=== PATIENT | male | born 1935 | race Caucasian/White ===

== ENCOUNTER 2020-08-09 12:11 | Emergency (ER) | payer BC, SELFPAY ==
[2020-08-09 12:15] VITALS: BP 130/61; PULSE 68; RESP 18; TEMP 36.6; O2SAT 99
--- NOTE | 2020-08-09 12:21 | ED.WOUNDLAC ---
HPI - Wound/Laceration General Chief Complaint: Wound/Laceration Stated Complaint: Bleeding Toe Time Seen by Provider: 08/09/20 12:21 History of Present Illness HPI narrative: He sustained a laceration to the right great toe while stepping out of the shower this morning. He attempted to control the bleeding at home, but he was not able to. He has minimal pain. No other symptoms. No fall or other injuries. No blood thinners. Related Data Home Medications Medication Instructions Recorded Confirmed lisinopril 08/09/20 valacyclovir 08/09/20 Allergies Allergy/AdvReac Type Severity Reaction Status Date / Time No Known Allergies Allergy Unknown Verified 08/09/20 12:17 Review of Systems Review of Systems: All systems reviewed & are unremarkable except as noted in HPI and below Constitutional: Constitutional: Denies chills, Denies fever(s) and Denies weakness Cardiovascular: Cardiovascular: Denies chest pain Respiratory: Respiratory: Denies dyspnea Gastrointestinal: Gastrointestinal: Denies nausea Musculoskeletal: Musculoskeletal: Denies back pain Neurologic: Denies dizziness, Denies numbness and Denies weakness [facility] Past Medical History Medical History (Updated 08/09/20 @ 14:11 by Balwinder Chopra MD) Foot drop, right foot HTN (hypertension) Social History Social History (Updated 08/09/20 @ 14:11 by Balwinder Chopra MD) Living arrangements: with family Gender identity (if verbalized by the patient): Male Exam Const: General: healthy appearing, no acute distress and alert Orientation/consciousness: patient oriented x3 HENMT: Head: normal to inspection Resp: Effort & Inspection: normal respiratory effort Auscultation: clear to auscultation bilaterally Cardio: Rate: regular rate Rhythm: regular rhythm Other: 2 + right DP and PT Skin: Other: Skin retracted from right great toenail with 1 cm laceration adjacent to nail Neuro: General: patient oriented x3, moves all extremities, no focal motor deficits and CN's II-XI intact bilaterally Speech: normal speech Extrem: General: normal to inspection Course Vital Signs Vital signs: Vital Signs Temperature 36.6 C 08/09/20 12:15 Pulse Rate 68 08/09/20 12:15 Respiratory Rate 18 08/09/20 12:15 Blood Pressure 130/61 08/09/20 12:15 Pulse Oximetry 99 08/09/20 12:15 Temperature 36.6 C 08/09/20 12:15 Pulse Rate 68 08/09/20 12:15 Respiratory Rate 18 08/09/20 12:15 Blood Pressure 130/61 08/09/20 12:15 Pulse Oximetry 99 08/09/20 12:15 Procedures Laceration Laceration 1: Site: other (toe) Side (If applicable): right Size (cm): 3 Description: irregular Depth: simple, single layer Local Anesthetic: lidocaine 1% Pre-repair: wound explored and irrigated ====== Skin Level ====== Skin layer closed with: other (Chromic) Size (cm): 4-0 Number of sutures: 9 Technique: running and other (laceration closed and skin sutured back onto nail ) ====== Subcutaneous Layer ====== ====== Muscle Layer ====== ====== Tendon Layer ====== Discharge Plan Discharge Clinical Impression: Laceration of toe of right foot Qualifiers: Encounter type: initial encounter Toe: great toe Damage to nail status: with damage Foreign body presence: without foreign body Qualified Code(s): S91.211A - Laceration without foreign body of right great toe with damage to nail, initial encounter Patient Disposition: Home, Self-Care Condition: Stable Instructions: Laceration (ED), Care For Your Absorbable Stitches (ED) Prescriptions: No Action valacyclovir 500 mg tablet RF: 0 lisinopril 10 mg tablet RF: 0 Follow-up/Referrals: Shabnam,Alex Beverly MD [Primary Care Provider] -
[2020-08-09 14:15] VITALS: BP 136/51; PULSE 72; RESP 19; TEMP 36.4; O2SAT 98
== END 2020-08-09 14:15 | disposition home or self-care (01) ==
PROVIDERS: Emergency Provider Emergency Medicine; PCP Internal Medicine
DX: S91.211A Laceration without foreign body of right great toe with damage to nail, initial encounter (principal); I10 Essential (primary) hypertension; W26.9XXA Contact with unspecified sharp object(s), initial encounter
CPT/HCPCS: 12001; 12002; 99282

== ENCOUNTER 2020-08-09 18:10 | Emergency (ER) | payer BC, SELFPAY ==
[2020-08-09 18:17] VITALS: BP 129/62; PULSE 62; RESP 17; TEMP 36.6; O2SAT 100
--- NOTE | 2020-08-09 19:54 | ED.WOUNDLAC ---
HPI - Wound/Laceration General Chief Complaint: Wound/Laceration Stated Complaint: Ripped open wound, Bleeding Again Time Seen by Provider: 08/09/20 19:43 History of Present Illness HPI narrative: Seen here earlier today for right toe laceration. He had the toe sutured and dressed. After returning home he began to bleed again. He soaked through the dressing and attempted to redress the wound. He was not able to stop the bleeding. Related Data Home Medications Medication Instructions Recorded Confirmed lisinopril 08/09/20 valacyclovir 08/09/20 Allergies Allergy/AdvReac Type Severity Reaction Status Date / Time No Known Allergies Allergy Unknown Verified 08/09/20 12:17 Review of Systems Review of Systems: All systems reviewed & are unremarkable except as noted in HPI and below Constitutional: Constitutional: Denies fever(s) and Denies weakness ENT: Denies dizziness Cardiovascular: Cardiovascular: Denies chest pain Respiratory: Respiratory: Denies dyspnea Gastrointestinal: Gastrointestinal: Denies nausea Neurologic: Denies dizziness and Denies weakness Hematologic/Lymphatic: Hematologic/Lymphatic: Denies easy bleeding REPLACED BY [facility] Past Medical History Medical History Foot drop, right foot HTN (hypertension) Social History Social History (Updated 08/09/20 @ 14:11 by Balwinder Chopra MD) Gender identity (if verbalized by the patient): Male Exam Const: General: no acute distress and alert Orientation/consciousness: patient oriented x3 HENMT: Head: normal to inspection Resp: Effort & Inspection: normal respiratory effort Auscultation: clear to auscultation bilaterally Cardio: Rate: regular rate Rhythm: regular rhythm Skin: Other: Moderate bleeding from toe laceration. Sutures still intact. Neuro: General: patient oriented x3 and moves all extremities Speech: normal speech Gait exam (Neuro): Normal gait present Course Vital Signs Vital signs: Vital Signs Temperature 36.6 C 08/09/20 18:17 Pulse Rate 62 08/09/20 18:17 Respiratory Rate 17 08/09/20 18:17 Blood Pressure 129/62 08/09/20 18:17 Pulse Oximetry 100 08/09/20 18:17 Temperature 36.6 C 08/09/20 18:17 Pulse Rate 62 08/09/20 18:17 Respiratory Rate 17 08/09/20 18:17 Blood Pressure 129/62 08/09/20 18:17 Pulse Oximetry 100 08/09/20 18:17 MDM - Wound/Laceration MDM Narrative Medical decision making narrative: Surgicell applied to wound with minimal pressure dressing. Bleeding stopped instantly. Observed to insure continued hemostasis. Differential Diagnosis Differential diagnosis: Likely laceration Medical Records Attestation: I reviewed the patient's medical records. Discharge Plan Discharge Clinical Impression: Laceration of toe of right foot Patient Disposition: Home, Self-Care Condition: Stable Instructions: Laceration (ED) Prescriptions: No Action valacyclovir 500 mg tablet RF: 0 lisinopril 10 mg tablet RF: 0 Follow-up/Referrals: Shabnam,Alex Beverly MD [Primary Care Provider] -
[2020-08-09] MEDS: CELLULOSE OXIDIZED 2 x 14 INCH 1 PKT XX (20:05)
== END 2020-08-09 21:13 | disposition home or self-care (01) ==
PROVIDERS: Emergency Provider Emergency Medicine; PCP Internal Medicine
DX: S91.111A Laceration without foreign body of right great toe without damage to nail, initial encounter (principal); I10 Essential (primary) hypertension; X58.XXXA Exposure to other specified factors, initial encounter
CPT/HCPCS: 12001; 99282

== ENCOUNTER 2021-02-02 20:03 | Emergency (ER) | payer BC, SELFPAY ==
[2021-02-02] VITALS (13 sets, daily range): BP systolic 116–134; BP diastolic 62–71; PULSE 44–58; RESP 12–16; TEMP 36.6; O2SAT 97–100
--- NOTE | ~2021-02-02 | CT_ITS ---
EXAMINATION: CT brain wo con DATE: 02/02/2021 21:23 INDICATION: Dizziness. Left ear pain. TECHNIQUE: Computed tomography (CT) of the head was performed without intravenous contrast. The mA wa s adjusted according to patient size. Iterative reconstruction technique was employed. The dose-lengt h product was 605.33 mGy-cm. COMPARISON: None FINDINGS: There is an old lacunar infarct in right thalamus. There are scattered areas of low attenua tion in the cerebral white matter. There is no intracranial hemorrhage, acute infarction, or abnormal intracranial mass lesion. The ventricles are normal in size. There is mild mucosal thickening in the paranasal sinuses. The orbits are normal. The mastoid air cells are normal. IMPRESSION: 1. 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 2. Moderate nonspecific cerebral white matter disease, which likely represents chronic small vessel i schemic disease. Reviewed, dictated and finalized at location A. IMPRESSION: 1. 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 2. Moderate nonspecific cerebral white matter disease, which likely represents chronic small vessel ischemic disease.
--- NOTE | ~2021-02-02 | CT_ITS ---
EXAMINATION: CTA brain carotid DATE: 02/02/2021 22:46 INDICATION: Dizziness. TECHNIQUE: Computed tomographic angiography (CTA) of the head was performed with 100 mL Omnipaque-350 intravenous contrast. CTA of the neck was performed with intravenous contrast. Automated exposure co ntrol and iterative reconstruction technique were employed. The dose-length product was 1184.70 mGy-c m. Maximum intensity projection and volume rendered 3D-reconstructions were created by the technologi st on a separate workstation. COMPARISON: Head CT 02/02/2021 FINDINGS: HEAD CTA: There are old lacunar infarcts in the bilateral thalami. There are scattered areas of low a ttenuation in the cerebral white matter. There is no intracranial hemorrhage, acute infarction, or ab normal intracranial mass lesion. The ventricles are normal in size. The orbits are normal. There is m ild mucosal thickening in the paranasal sinuses. The mastoid air cells are normal. There is mild sten osis of the intracranial internal carotid arteries. There is no significant stenosis of the anterior or middle cerebral arteries. Left A1 anterior cerebral artery segment is small or absent. The posteri or communicating arteries are normal. The vertebral arteries are codominant. There is no significant stenosis of basilar artery or the posterior cerebral arteries. There is no aneurysm. NECK CTA: There are no pathologically enlarged lymph nodes. There is no significant stenosis of the vertebral arteries. There is plaque in the proximal internal carotid arteries. There is 0% stenosis of the proximal right internal carotid artery relative to normal distal artery lumen diameter (NASCET criteria). There is 13% stenosis of the proximal left internal carotid artery relative to normal dis glo artery lumen diameter. There is severe thoracic spondylosis. IMPRESSION: 1. 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 2. Moderate nonspecific cerebral white matter disease, which likely represents chronic small vessel i schemic disease. 3. No aneurysm or significant intracranial arterial stenosis. 4. 0% stenosis of the proximal right internal carotid artery relative to normal distal artery lumen d iameter (NASCET criteria). 5. 13% stenosis of the proximal left internal carotid artery relative to normal distal artery lumen d iameter. Reviewed, dictated and finalized at location A. IMPRESSION: 1. 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 2. Moderate nonspecific cerebral white matter disease, which likely represents chronic small vessel ischemic disease. 3. No aneurysm or significant intracranial arterial stenosis. 4. 0% stenosis of the proximal right internal carotid artery relative to normal distal artery lumen diameter (NASCET criteria). 5. 13% stenosis of the proximal left internal carotid artery relative to normal distal artery lumen diameter.
--- NOTE | ~2021-02-02 | XR_ITS ---
EXAMINATION: XR chest 1V DATE: 02/02/2021 21:29 INDICATION: Dizziness. Hypertension. TECHNIQUE: A single frontal view of the chest was obtained. COMPARISON: None. FINDINGS: There is no pneumonia, pleural effusion, or pneumothorax. The heart size is normal. IMPRESSION: 1. No acute cardiopulmonary disease. Reviewed, dictated and finalized at location A.
--- NOTE | 2021-02-02 20:54 | ECG_ITS ---
Measurements Intervals [place] Rate: 47 P: NC: 0 QRS: -53 QRSD: 108 T: 38 QT: 496 QTc: 440 Interpretive Statements ATRIAL FIBRILLATION WITH SLOW VENTRICULAR RESPONSE LEFT AXIS DEVIATION INCOMPLETE RIGHT BUNDLE BRANCH BLOCK CANNOT RULE OUT SEPTAL INFARCT, AGE INDETERMINATE BORDERLINE T WAVE ABNORMALITY- INFERIOR LEADS ABNORMAL ECG Electronically Signed On 02-03-2021 5:41:22 CDT by Jake Key D.O.
--- NOTE | 2021-02-02 21:02 | ED.EAR ---
HPI - Ear Problem General Chief complaint: Dizziness Stated complaint: clogged ears, off-balance Time Seen by Provider: 02/02/21 20:14 Source: patient Mode of arrival: wheelchair Limitations: other (Patient is very hard of hearing) History of Present Illness HPI Narrative: This is an 85-year-old male that presents to the emergency department for dizziness ongoing over the last couple of days. Reports he feels like his left ear is clogged. If he puts something in it he feels like he can maintain his balance, otherwise he is not able to ambulate or even sit up due to dizziness. Denies fever, vision changes, vomiting, numbness, or weakness. Related Data Home Medications Medication Instructions Recorded Confirmed lisinopril 08/09/20 valacyclovir 08/09/20 Allergies Allergy/AdvReac Type Severity Reaction Status Date / Time No Known Allergies Allergy Unknown Verified 02/02/21 20:18 Review of Systems Review of Systems: Narrative: CONSTITUTIONAL: Denies fever EYES: Denies visual changes CARDIOVASCULAR: Denies chest pain RESPIRATORY: Denies dyspnea. GASTROINTESTINAL: Denies vomiting NEUROLOGIC: Denies headache, numbness, or weakness. All systems reviewed & are unremarkable except as noted in HPI and below PMFSH Past Medical History Medical History Foot drop, right foot HTN (hypertension) Social History Social History (Updated 08/09/20 @ 14:11 by Balwinder Chopra MD) Gender identity (if verbalized by the patient): Male Exam Narrative: Exam Narrative: GENERAL: Well-appearing, well-nourished, and in no acute distress. HEAD: Normocephalic, atraumatic. EYES: PERRLA and EOMI. ENT: Nares clear, no rhinorrhea or epistaxis. Mucous membranes moist. Oropharynx without tonsillar hypertrophy exudate or other lesions. Bilateral TMs pearly thakkar non-bulging NECK: Supple. No adenopathy or masses. CHEST: Clear to auscultation. No respiratory distress. No wheezes rales or rhonchi HEART: Regular rate and rhythm. No murmur heard. Normal peripheral pulses. EXTREMITIES: Normal range of motion. No edema. SKIN: Warm, dry, no rash. NEURO: No focal deficits. Alert and oriented x3. Normal finger to nose. Patient is only able to lie down. When he sits up he cannot maintain balance PSYCH: Normal mood and affect Course Consultations Consultation #1: Spoke with Dr. Fierro about patient and work-up will follow-up in clinic Date: 02/03/21 Time: 00:07 Vital Signs Vital signs: Vital Signs Temperature 97.8 F 02/02/21 20:05 Pulse Rate 58 L 02/02/21 20:05 Respiratory Rate 16 02/02/21 20:05 Blood Pressure 134/62 02/02/21 20:05 Pulse Oximetry 100 02/02/21 20:05 Temperature 97.8 F 02/02/21 20:05 Pulse Rate 45 L 02/02/21 22:01 Respiratory Rate 14 02/02/21 21:05 Blood Pressure 116/64 02/02/21 22:01 Pulse Oximetry 97 02/02/21 22:01 Medical Decision Making MDM Narrative Medical decision making narrative: Patient presents to the emergency department for feelings of off balance and dizziness ongoing over the last couple of days. He is afebrile and nontoxic-appearing. Vitals are stable. He is bradycardic with rate in the 40s and 50s. He denies any chest pain or shortness of breath. EKG does seem consistent with A. fib with slow ventricular response. No acute ST changes. Baseline troponin is negative. CBC and metabolic panel without concerning findings. Chest x-ray without acute changes. CT scan of the brain shows old lacunar infarct in the right thalamus. CTA of the head and neck shows again old lacunar infarcts in the bilateral thalami. Moderate nonspecific cerebral white matter disease, which likely represents chronic small vessel ischemic disease. No aneurysm or significant intracranial arterial stenosis. 0% stenosis proximal right internal carotid artery. 13% stenosis of the proximal left internal carotid artery. Patient and family update
--- NOTE | 2021-02-02 21:14 | PC.NURSE ---
Patient taken to CT.
[2021-02-02 21:16] LABS: Glucose Point of Care 85 mg/dl (65-105)
[2021-02-02 21:24] LABS: Basophils Absolute Auto 0.1 K/mm3 (0.0-0.1); Basophils Percent Auto 0.9 % (0.2-1.2); Eosinophils Absolute Auto 0.2 K/mm3 (0-0.3); Eosinophils Percent Auto 3.2 % (0-4.4); Hematocrit 36.6 % (42.0-52.0); Hemoglobin 12.3 g/dL (14.0-18.0); Immature Granulocyte Absolute 0.02 K/mm3 (0.00-0.031); Immature Granulocyte Percent A 0.4 % (0-0.5); Immature Platelet Fraction Pct 5.2 % (0.9-11.2); Lymphocytes Absolute Auto 1.38 K/mm3 (0.9-3.2); Lymphocytes Percent Auto 24.6 % (18.3-44.2); Mean Corpuscular HGB Conc 33.6 g/dl (32-36); Mean Corpuscular Hemoglobin 36.3 pg (26-34); Mean Platelet Volume 10.6 fl (7.4-10.4); Monocytes Absolute Auto 0.7 K/mm3 (0.1-0.6); Monocytes Percent Auto 11.9 % (2.6-8.5); Neutrophils Absolute Auto 3.3 K/mm3 (1.3-6.7); Platelet Count Result 146 k/mm3 (150-375); Red Blood Count 3.39 M/mm3 (4.6-6.20); Red Cell Distribution Width 12.4 % (11.5-14.5); White Blood Count 5.6 K/mm3 (4.5-10.0)
[2021-02-02] MEDS: MECLIZINE HCL 25 MG TABLET PO (21:30)
[2021-02-02 21:32] LABS: INR 1.3; Prothrombin Time 16.3 Seconds (11.1-14.7)
[2021-02-02 21:33] LABS: Partial Thromboplastin Time 36.6 SECONDS (22.3-36.8)
[2021-02-02 21:34] LABS: Anion Gap 9 mmol/L (8-16); Blood Urea Nitrogen 20 mg/dL (9-20); Calcium 9.4 mg/dL (8.4-10.2); Carbon Dioxide 23 mmol/L (22-30); Chloride 106 mmol/L (98-107); Estimated Glomerular Filt Rate 41; Glucose 88 mg/dL (75-110); Potassium 4.3 mmol/L (3.4-5.0); Sodium 138 mmol/L (137-145)
[2021-02-02 21:46] LABS: Troponin I 0.025 ng/mL (0.000-0.034)
--- NOTE | 2021-02-02 22:23 | PC.NURSE ---
Patient taken back to CT.
--- NOTE | 2021-02-02 23:25 | PC.NURSE ---
Patient stating he is not dizzy anymore with movement. ERP notified.
[2021-02-03 00:16] VITALS: BP 116/71; PULSE 50; RESP 15; TEMP 36.7; O2SAT 99
== END 2021-02-03 00:20 | disposition home or self-care (01) ==
PROVIDERS: Physician Assistant; Emergency Provider Emergency Medicine; PCP Internal Medicine
DX: R42 Dizziness and giddiness (principal); I10 Essential (primary) hypertension; M21.371 Foot drop, right foot; R90.82 White matter disease, unspecified; I48.91 Unspecified atrial fibrillation; I45.10 Unspecified right bundle-branch block; R94.31 Abnormal electrocardiogram [ECG] [EKG]
CPT/HCPCS: 36415; 70450; 70496; 70498; 71045; 80048; 82948; 84484; 85025; 85055; 85610; 85730; 93005; 99284; A9270; Q9967